=== PATIENT | male | born 1955 | race Caucasian/White ===

== ENCOUNTER 2018-02-13 10:12 | Inpatient (IN) | payer OTHER ==
[2018-02-13] MEDS ORDERED: NS 2,000 ML IV ONE (10:29)
[2018-02-13] MEDS ORDERED: NICOTINE 21 MG/24 HR PATCH TD ONE (10:29)
[2018-02-13] MEDS ORDERED: IPRATROPIUM/ALBUTEROL 3 ML DEYVIAL IH ONE (10:31)
--- NOTE | 2018-02-13 10:31 | EDPHY ---
H & P Time Seen by Provider: 02/13/18 10:15 HPI/ROS: CHIEF COMPLAINT: Cough and fever and shortness of breath HISTORY OF PRESENT ILLNESS: Patient is homeless and tobacco smoker but no hospitalizations in the past year, presents with 3 days of cough fever and shortness of breath. Symptoms severe and went to primary care today was sent here. Worse with exertion, progressive over the last 3 days. Not associated with chest pain, skin rash. REVIEW OF SYSTEMS: Eye: no change in vision ENT: no sore throat Cardiac: no chest pain or syncope Pulmonary: HPI Abdomen: no vomiting, diarrhea, abdominal pain Musculoskeletal: no back pain Skin: no rash Neuro: no headache Constitutional: HPI : no urinary symptoms A comprehensive 10 point review of systems is otherwise negative aside from elements mentioned in the history of present illness. PAST MEDICAL HISTORY: Negative. Specifically negative for diabetes or heart disease or hypertension. Social history: Tobacco smoker, currently in a homeless [facility] General Appearance: Alert and conversant, cooperative. Eyes: No scleral icterus. ENT, Mouth: Normal mucous membranes. Respiratory: Bilateral rhonchi and expiratory wheezes with tachypnea and increased work of breathing. Cardiovascular: Regular rate and rhythm. Gastrointestinal: Abdomen is soft and non tender. Neurological: Alert, face symmetric, normal motor and sensory in extremities. Skin: Warm and dry, no rashes. Musculoskeletal: No peripheral edema. Psychiatric: Not agitated. Emergency Department course/MDM: Patient presents febrile and tachycardic with severely low oxygen saturations although he is in the low to mid 90s on nasal cannula 4 L. Oxygen applied at triage. Sepsis screening with lactate, blood cultures, chest x-ray and respiratory panel. Admission for probable pneumonia; community-acquired antibiotics without recent hospitalization and no history of immunocompromise. 1121: Chest x-ray shows large left-sided pneumonia. Ceftriaxone, azithromycin , full admission. Sepsis IV fluid bolus. Does not have evidence of septic shock. Severe sepsis with lactate 2.9 initially went down to 1.7. Smoking Status: Heavy smoker Constitutional: Initial Vital Signs Temperature (C) 38.0 C 02/13/18 10:17 Heart Rate 132 H 02/13/18 10:17 Respiratory Rate 26 H 02/13/18 10:17 Blood Pressure 168/101 H 02/13/18 10:17 O2 Sat (%) 56 L 02/13/18 10:17 O2 Delivery Mode Nasal Cannula O2 (L/minute) 4 Allergies/Adverse Reactions: No Known Allergies Allergy (Verified 02/13/18 11:17) Home Medications: Medication Instructions Recorded Albuterol [Proventil Inhaler HFA 1 - 2 puffs IH DAILY PRN 02/13/18 (*)] Fluticasone/Salmeter 250/50Mcg 1 puffs IH BID 02/13/18 [Advair 250/50 (*)] Linaclotide [Linzess] 290 mcg PO DAILY 02/13/18 Pramipexole Di-HCl [Pramipexole 0.25 mg PO TID 02/13/18 Dihydrochloride] carBAMazepine [Carbamazepine] 400 mg PO BID 02/13/18 Medical Decision Making - Diagnostics EKG Interpretation: 12-lead EKG interpreted by me; official reading is in computer system. My interpretation is sinus tachycardia rate 110, borderline prolonged QT. Per my interpretation does not have acute ischemic changes. Imaging Results: Imaging Impressions Chest X-Ray 02/13/18 10:29 Impression: Pneumonia versus mass left midlung. Imaging: I viewed and interpreted images myself Differential Diagnosis: Differential diagnosis considered for shortness of breath including but not limited to pulmonary infectious process, COPD, asthma, pulmonary embolus and congestive heart failure. Consult/Admit Bed Type: [place] [id number] Critical Care Time: Critical care time spent by me, Dr. Cody, exclusively with the care of this patient was 35 minutes, exclusive of PA or DRY CELL ASSEMBLY MACHINE TENDER time and exclusive of separate procedures. The organ system at risk was pulmonary infectious and I ordered supplemental oxygen, IV fluids, multiple antibiotics to stabilize the patient and prevent worsening of the patient's condition. - Data Points Laboratory Results: Laboratory Results 02/13/18 11:00 02/13/18 11:00 02/13/18 02/13/18 02/13/18 11:00 11:00 11:00 WBC RBC Hgb Hct MCV MCH MCHC RDW Plt Count MPV Neut % (Auto) Lymph % (Auto) [place] % (Auto) Eos % (Auto) Baso % (Auto) Nucleat RBC Rel Count Absolute Neuts (auto) Absolute Lymphs (auto) Absolute Monos (auto) Absolute Eos (auto) Absolute Basos (auto) Absolute Nucleated RBC Immature Gran % Seg Neutrophils % Band Neutrophils % Lymphocytes % Monocytes % Eosinophils % Basophils % Immature Gran # Absolute Seg Neuts Absolute Band Neuts Absolute Lymphocytes Absolute Monocytes Absolute Eosinophils Absolute Basophils Smudge Cells Toxic Granulation Platelet Estimate Giant Platelets Polychromasia Echinocytes PT 15.5 SEC H SEC (12.0-15.0) INR 1.21 H (0.83-1.16) APTT 37.4 SEC SEC (23.0-38.0) POC Blood Source Patient Temperature POC VBG pH POC VBG pCO2 POC VBG pO2 POC VBG HCO3 POC VBG Total CO2 POC VBG Base Excess VBG Lactic Acid POC Mix VBG O2 Sat Sodium 137 mEq/L mEq/L (135-145) Potassium 4.1 mEq/L mEq/L (3.3-5.0) Chloride 103 mEq/L mEq/L (97-110) Carbon Dioxide 24 mEq/l mEq/l (22-31) Anion Gap 10 mEq/L mEq/L (8-16) BUN 22 mg/dL mg/dL (7-23) Creatinine 0.7 mg/dL mg/dL (0.7-1.3) Estimated GFR > 60 Glucose 124 mg/dL H mg/dL (70-100) POC Lactic Acid Harpal Calcium 9.2 mg/dL mg/dL (8.5-10.4) Total Bilirubin 0.8 mg/dL mg/dL (0.1-1.4) Procalcitonin 2.72 ng/mL H ng/mL (0.02-0.10) 02/13/18 02/13/18 02/13/18 11:00 10:55 10:49 WBC 20.07 10^3/uL H 10^3/uL (3.80-9.50) RBC 4.54 10^6/uL 10^6/uL (4.40-6.38) Hgb 14.5 g/dL g/dL (13.7-17.5) Hct 42.8 % % (40.0-51.0) MCV 94.3 fL fL (81.5-99.8) MCH 31.9 pg pg (27.9-34.1) MCHC 33.9 g/dL g/dL (32.4-36.7) RDW 13.1 % % (11.5-15.2) Plt Count 113 10^3/uL L 10^3/uL (150-400) MPV 9.7 fL fL (8.7-11.7) Neut % (Auto) Not Reported Lymph % (Auto) Not Reported [place] % (Auto) Not Reported Eos % (Auto) Not Reported Baso % (Auto) Not Reported Nucleat RBC Rel Count Not Reported Absolute Neuts (auto) Not Reported Absolute Lymphs (auto) Not Reported Absolute Monos (auto) Not Reported Absolute Eos (auto) Not Reported Absolute Basos (auto) Not Reported Absolute Nucleated RBC Not Reported Immature Gran % Not Reported Seg Neutrophils % 74.8 % % Band Neutrophils % 21.2 % % Lymphocytes % 2.0 % % Monocytes % 2.0 % % Eosinophils % 0.0 % % Basophils % 0.0 % % Immature Gran # Not Reported Absolute Seg Neuts 15.00 10^/uL H 10^/uL (1.70-6.50) Absolute Band Neuts 4.26 10^3/uL H 10^3/uL (0.00-0.70) Absolute Lymphocytes 0.41 10^3/uL L 10^3/uL (1.00-3.00) Absolute Monocytes 0.41 10^3/uL 10^3/uL (0.30-0.80) Absolute Eosinophils 0.00 10^3/uL L 10^3/uL (0.03-0.40) Absolute Basophils 0.00 10^3/uL L 10^3/uL (0.02-0.10) Smudge Cells 1+ H Toxic Granulation PRESENT H Platelet Estimate DECREASED L (ADEQ) Giant Platelets PRESENT H Polychromasia 1+ H Echinocytes 1+ H PT INR APTT POC Blood Source VENOUS Patient Temperature 38.0 DEGREES DEGREES POC VBG pH 7.30 L (7.31-7.42) POC VBG pCO2 56 mmHg H mmHg (40-44) POC VBG pO2 TNP POC VBG HCO3 28 mEq/L H mEq/L (22-26) POC VBG Total CO2 29 mEq/L H mEq/L (21-27) POC VBG Base Excess 1.0 mEq/L mEq/L (-2.5-2.5) VBG Lactic Acid 1.7 mmol/L mmol/L (0.7-2.1) POC Mix VBG O2 Sat TNP Sodium Potassium Chloride Carbon Dioxide Anion Gap BUN Creatinine Estimated GFR Glucose POC Lactic Acid Harpal 2.9 mmol/L H mmol/L (0.7-2.1) Calcium Total Bilirubin Procalcitonin 02/13/18 10:45 WBC RBC Hgb Hct MCV MCH MCHC RDW Plt Count MPV Neut % (Auto) Lymph % (Auto) [place] % (Auto) Eos % (Auto) Baso % (Auto) Nucleat RBC Rel Count Absolute Neuts (auto) Absolute Lymphs (auto) Absolute Monos (auto) Absolute Eos (auto) Absolute Basos (auto) Absolute Nucleated RBC Immature Gran % Seg Neutrophils % Band Neutrophils % Lymphocytes % Monocytes % Eosinophils % Basophils % Immature Gran # Absolute Seg Neuts Absolute Band Neuts Absolute Lymphocytes Absolute Monocytes Absolute Eosinophils Absolute Basophils Smudge Cells Toxic Granulation Platelet Estimate Giant Platelets Polychromasia Echinocytes PT INR APTT POC Blood Source Patient Temperature POC VBG pH POC VBG pCO2 POC VBG pO2 POC VBG HCO3 POC VBG Total CO2 POC VBG Base Excess VBG Lactic Acid 2.9 mmol/L H mmol/L (0.7-2.1) POC Mix VBG O2 Sat Sodium Potassium Chloride Carbon Dioxide Anion Gap BUN Creatinine Estimated GFR Glucose POC Lactic Acid Harpal Calcium Total Bilirubin Procalcitonin Microbiology Results: MICROBIOLOGY 02/13/18 11:00 Nasal, Sinus - Swab Respiratory Panel (PCR) - Final Human Rhinovirus/Enterovirus Medications Given: Discontinued Medications Albuterol/Ipratropium (Duoneb) 3 ml IH EDNOW ONE Stop: 02/13/18 10:32 Last Admin: 02/13/18 10:48 Dose: 3 ml Sodium Chloride (Ns) 2,000 mls @ 4,000 mls/hr 30 ml/kg infuse over 30 min ( 2000 ml) IV EDNOW ONE PRN Reason: Protocol Stop: 02/13/18 10:58 Last Admin: 02/13/18 10:39 Dose: 2,000 mls Azithromycin 500 mg/ Dextrose 255 mls @ 255 mls/hr IV EDNOW ONE PRN Reason: Protocol Stop: 02/13/18 12:20 Last Admin: 02/13/18 11:54 Dose: 255 mls Ceftriaxone Sodium/Dextrose (Rocephin 1 Gm (Premix)) 50 mls @ 100 mls/hr IV EDNOW ONE PRN Reason: Protocol Stop: 02/13/18 11:50 Last Admin: 02/13/18 11:34 Dose: 50 mls Nicotine (Nicoderm Cq) 21 mg TD EDNOW ONE Stop: 02/13/18 10:30 Last Admin: 02/13/18 10:37 Dose: 21 mg Point of Care Test Results: Blood Gas/Lactic Acid-Arterial 02/13/18 10:49 POC Blood Source VENOUS Blood Gas/Lactic Acid-Venous 02/13/18 10:49 POC VBG pH 7.30 L (7.31-7.42) POC VBG pCO2 56 mmHg H mmHg (40-44) POC VBG pO2 TNP POC VBG HCO3 28 mEq/L H mEq/L (22-26) POC VBG Total CO2 29 mEq/L H mEq/L (21-27) POC VBG Base Excess 1.0 mEq/L mEq/L (-2.5-2.5) POC Mix VBG O2 Sat TNP POC Lactic Acid Harpal 2.9 mmol/L H mmol/L (0.7-2.1) Departure - Departure Disposition: [facility] Inpatient Acute Clinical Impression: Pneumonia Qualifiers: Pneumonia type: due to unspecified organism Laterality: left Lung location: unspecified part of lung Qualified Code(s): J18.9 - Pneumonia, unspecified organism Condition: Serious
[2018-02-13] MEDS ORDERED: AZITHROMYCIN IV 500 MG in D5W 250 ML IV ONE (11:21)
--- NOTE | 2018-02-13 11:23 | CPEKG ---
Test Reason : OPEN Blood Pressure : / mmHG Vent. Rate : 111 BPM Atrial Rate : 112 BPM P-R Int : 159 ms QRS Dur : 113 ms QT Int : 357 ms P-R-T Axes : 066 033 022 degrees QTc Int : [address] elevation, consider anterior injury Borderline prolonged QT interval Confirmed by Orion Cody ([id number]) on 02/13/2018 11:22:54 AM Referred By: Confirmed By:Orion Cody
[2018-02-13 11:24] LABS: INR 1.21 (0.83-1.16); PROTIME(PATIENT) 15.5 SEC (12.0-15.0)
[2018-02-13 12:04] LABS: PLATELET COUNT 113 10^3/uL (150-400)
[2018-02-13] MEDS ORDERED: ONDANSETRON 4 MG/2 ML VIAL IVP PRN (12:42)
[2018-02-13] MEDS ORDERED: ONDANSETRON DISINTEGRATING 4 MG TAB PO PRN (12:42)
--- NOTE | 2018-02-13 13:06 | PDGENHP ---
History and Physical - Chief Complaint shortness of breath - History of Present Illness 63yo M with history of Parkinson's syndrome, extensive smoking history likely with COPD, homelessness presents with 3 days of shortness of breath associated with non-productive cough, subjective fevers, chills. Came in today because having trouble breathing with any exertion. Also reports some constipation and one episode of non-bloody emesis. Denies rash, joint pains. No leg swelling, orthopnea, or chest pain. Has been living in homeless long-term for last month and reports numerous sick contacts there. Smokes up to 2 packs of cigarettes daily. No recent travel, animal contacts, antibiotics or hospitalizations/ healthcare contacts. He thinks he was bitten by a tick about a month ago on his leg but never got a rash. In ED, found to be tachycardic with very poor oxygen saturation of 56% on room air that improved to >90% on 4L NC. An initial lactate was 2.9, WBC 20k, and a chest x-ray showed a left sided infiltrate. He was given 2L NS, ceftriaxone, and azithromycin. Case discussed with ED physician Dr Orion Cody. No prior records for review in our system. History Information - Allergies/Home Medication List Allergies/Adverse Reactions: No Known Allergies Allergy (Verified 02/13/18 11:17) Home Medications: Albuterol [Proventil Inhaler HFA (*)] 1 - 2 puffs IH DAILY PRN 02/13/18 [Last Taken Unknown] Fluticasone/Salmeter 250/50Mcg [Advair 250/50 (*)] 1 puffs IH BID 02/13/18 [ Last Taken Unknown] Linaclotide [Linzess] 290 mcg PO DAILY 02/13/18 [Last Taken Unknown] Pramipexole Di-HCl [Pramipexole Dihydrochloride] 0.25 mg PO TID 02/13/18 [Last Taken Unknown] carBAMazepine [Carbamazepine] 400 mg PO BID 02/13/18 [Last Taken Unknown] I have personally reviewed and updated: family history, medical history, social history, surgical history - Past Medical History Additional medical history: Parkinson's syndrome (sees Dr Theodore Dial of [facility]), COPD/emphysema - Surgical History Additional surgical history: none - Family History Additional family history: father - ? PE, coronary disease - Social History Smoking Status: Heavy smoker (2ppd) Alcohol Use: None Drug Use: None Additional social history: living in homeless long-term Review of Systems Review of Systems: ROS: 10pt was reviewed & negative except for what was stated in HPI & below Physical Exam Physical Exam: Temp Pulse Resp BP Pulse Ox 38.0 C 106 H 17 112/67 90 L 02/13/18 10:17 02/13/18 12:20 02/13/18 12:20 02/13/18 12:20 02/13/18 12:25 O2 (L/minute) 5 Constitutional: not in pain, other (disheveled) Eyes: PERRL, anicteric sclera, EOMI Ears, Nose, Mouth, Throat: moist mucous membranes, hearing normal, ears appear normal, no oral mucosal ulcers Cardiovascular: no murmur, rub, or gallop, pulses symmetric bilaterally, tachycardia, edema (trace at bilateral ankles), No JVD Respiratory: reduced air movement, aegophony (left sided), rhonchi (left sided) , other (coughing throughout exam making auscultation difficult; mildly tachypneic) Gastrointestinal: normoactive bowel sounds, soft, non-tender abdomen, no palpable masses Genitourinary: no bladder fullness, no bladder tenderness Skin: warm, normal color, no rashes or abrasions, no fluctuance, no induration, No mottled Musculoskeletal: full muscle strength, no muscle tenderness, normal joint ROM, no joint effusions Neurologic: AAOx3, sensation intact bilaterally, CN II-XII Intact, other (no tremor or rigidity), No weakness, No facial droop Psychiatric: interacting appropriately, not anxious, not encephalopathic, thought process linear Lab Data & Imaging Review 02/13/18 11:00 02/13/18 11:00 WBC 20.07 10^3/uL (3.80-9.50) H 02/13/18 11:00 RBC 4.54 10^6/uL (4.40-6.38) 02/13/18 11:00 Hgb 14.5 g/dL (13.7-17.5) 02/13/18 11:00 Hct 42.8 % (40.0-51.0) 02/13/18 11:00 MCV 94.3 fL (81.5-99.8) 02/13/18 11:00 MCH 31.9 pg (27.9-34.1) 02/13/18 11:00 MCHC 33.9 g/dL (32.4-36.7) 02/13/18 11:00 RDW 13.1 % (11.5-15.2) 02/13/18 11:00 Plt Count 113 10^3/uL (150-400) L 02/13/18 11:00 MPV 9.7 fL (8.7-11.7) 02/13/18 11:00 Neut % (Auto) Not Reported 02/13/18 11:00 Lymph % (Auto) Not Reported 02/13/18 11:00 [place] % (Auto) Not Reported 02/13/18 11:00 Eos % (Auto) Not Reported 02/13/18 11:00 Baso % (Auto) Not Reported 02/13/18 11:00 Nucleat RBC Rel Count Not Reported 02/13/18 11:00 Absolute Neuts (auto) Not Reported 02/13/18 11:00 Absolute Lymphs (auto) Not Reported 02/13/18 11:00 Absolute Monos (auto) Not Reported 02/13/18 11:00 Absolute Eos (auto) Not Reported 02/13/18 11:00 Absolute Basos (auto) Not Reported 02/13/18 11:00 Absolute Nucleated RBC Not Reported 02/13/18 11:00 Immature Gran % Not Reported 02/13/18 11:00 Seg Neutrophils % 74.8 % 02/13/18 11:00 Band Neutrophils % 21.2 % 02/13/18 11:00 Lymphocytes % 2.0 % 02/13/18 11:00 Monocytes % 2.0 % 02/13/18 11:00 Eosinophils % 0.0 % 02/13/18 11:00 Basophils % 0.0 % 02/13/18 11:00 Immature Gran # Not Reported 02/13/18 11:00 Absolute Seg Neuts 15.00 10^/uL (1.70-6.50) H 02/13/18 11:00 Absolute Band Neuts 4.26 10^3/uL (0.00-0.70) H 02/13/18 11:00 Absolute Lymphocytes 0.41 10^3/uL (1.00-3.00) L 02/13/18 11:00 Absolute Monocytes 0.41 10^3/uL (0.30-0.80) 02/13/18 11:00 Absolute Eosinophils 0.00 10^3/uL (0.03-0.40) L 02/13/18 11:00 Absolute Basophils 0.00 10^3/uL (0.02-0.10) L 02/13/18 11:00 Smudge Cells 1+ H 02/13/18 11:00 Toxic Granulation PRESENT H 02/13/18 11:00 Platelet Estimate DECREASED (ADEQ) L 02/13/18 11:00 Giant Platelets PRESENT H 02/13/18 11:00 Polychromasia 1+ H 02/13/18 11:00 Echinocytes 1+ H 02/13/18 11:00 PT 15.5 SEC (12.0-15.0) H 02/13/18 11:00 INR 1.21 (0.83-1.16) H 02/13/18 11:00 APTT 37.4 SEC (23.0-38.0) 02/13/18 11:00 POC Blood Source VENOUS 02/13/18 10:49 Patient Temperature 38.0 DEGREES 02/13/18 10:49 POC VBG pH 7.30 (7.31-7.42) L 02/13/18 10:49 POC VBG pCO2 56 mmHg (40-44) H 02/13/18 10:49 POC VBG pO2 TNP 02/13/18 10:49 POC VBG HCO3 28 mEq/L (22-26) H 02/13/18 10:49 POC VBG Total CO2 29 mEq/L (21-27) H 02/13/18 10:49 POC VBG Base Excess 1.0 mEq/L (-2.5-2.5) 02/13/18 10:49 VBG Lactic Acid 1.7 mmol/L (0.7-2.1) 02/13/18 10:55 POC Mix VBG O2 Sat TNP 02/13/18 10:49 Sodium 137 mEq/L (135-145) 02/13/18 11:00 Potassium 4.1 mEq/L (3.3-5.0) 02/13/18 11:00 Chloride 103 mEq/L (97-110) 02/13/18 11:00 Carbon Dioxide 24 mEq/l (22-31) 02/13/18 11:00 Anion Gap 10 mEq/L (8-16) 02/13/18 11:00 BUN 22 mg/dL (7-23) 02/13/18 11:00 Creatinine 0.7 mg/dL (0.7-1.3) 02/13/18 11:00 Estimated GFR > 60 02/13/18 11:00 Glucose 124 mg/dL (70-100) H 02/13/18 11:00 POC Lactic Acid Harpal 2.9 mmol/L (0.7-2.1) H 02/13/18 10:49 Calcium 9.2 mg/dL (8.5-10.4) 02/13/18 11:00 Total Bilirubin 0.8 mg/dL (0.1-1.4) 02/13/18 11:00 Visualized and Interpreted Chest x-ray results: Yes Chest X-Ray results: infiltrate (large left sided infiltrate involving lingula and likely lower lobe, small left pleural effusion, enlarged hilar areas likely suggesting pulmonary hypertension (interpreted by me)) Visualized and Interpreted EKG results: Yes EKG additional interpertation: Sinus tachycardia, prolonged QTc (485), no acute ischemia Assessment & Plan Assessment: 63yo M with history of Parkinson's syndrome, extensive smoking history likely with COPD, homelessness presents with 3 days of shortness of breath found to be hypoxemic with left sided infiltrate on chest x-ray and meeting sepsis criteria. Plan: #Acute hypoxemic respiratory failure with left sided infiltrate: Resp viral panel + for rhinovirus/enterovirus however x-ray more convincing for bacterial process. Will treat for community-acquired pneumonia. - Supplemental O2 to maintain sats >88% - CTX, azithromycin - Legionella, Strep pneumo urine ags - Check procalcitonin to help guide duration of abx - Sputum culture - If not improving in expected fashion, will pursue contrasted chest CT to better characterize and broaden antibiotics. He likely warrants a chest CT once acute issues resolve to evaluate for mass leading to post-obstructive pneumonia. #Sepsis: Febrile with tachycardia and leukocytosis on arrival in setting of pneumonia. - IVF, abx as above - Follow blood cultures and monitor sepsis parameters #Lactic acidosis: Resolved with IVF. #COPD: Based on extensive smoking history, no formal PFTs. Not wheezing on exam , doesn't appear acutely exacerbated. - Schedule dusofiya, hold on starting steroids #Parkinson's syndrome: Followed by Dr Theodore Dial of [facility] - Continue home pramipexole, carbamazepine (? seizure hx) #Tobacco use: Nicotine patch. #Homelessness: Involve case management. May need supplemental oxygen at discharge. Diet: regular VTE ppx: high risk, LMWH Code: full Dispo: Admit as inpatient to step down unit given his tenuous respiratory status. Anticipate >2 midnights to manage above conditions.
[2018-02-13] MEDS ORDERED: NS 1,000 ML IV ONE (15:16)
--- NOTE | 2018-02-13 15:28 | ASMTCMCOM ---
CM Note CM Note Notes: 63yr old male admitted for SOB, Hypoxemic Respiratory Failure, Sepsis. He has a Hx of Homelessness, Parkinson's, extensive smoking, COPD. Being tx with IV ABX. May have O2 needs on discharge. CM to follow. Date Signed: 02/13/2018 03:27 PM Electronically Signed By:Estrella Patterson LCSW
[2018-02-13] MEDS: NS 1,000 ML IV SCH (16:21)
[2018-02-13] MEDS: PRAMIPEXOLE 0.25 MG TAB PO SCH ×2 (16:24→20:34)
--- NOTE | 2018-02-13 16:44 | PDMN ---
Medical Necessity Medical necessity: Pt meets IP criteria per MD & MCG [id number]; est los >2 mn for eval/tx of pneumonia w/sepsis, acute hypoxemic respiratory failure (56% on RA), tachycardia, leukocytosis & thrombocytopenia; admit to SDU for further workup/ close monitoring, IV abx, IVFs & respiratory supportive care; hx Parkinsons, homelessness, COPD & emphysema; per H&P & order 02/13/18
[2018-02-13] MEDS: IPRATROPIUM/ALBUTEROL 3 ML DEYVIAL IH SCH ×2 (17:13→23:00)
--- NOTE | 2018-02-13 17:15 | GCON ---
PULMONARY/CRITICAL CARE CONSULTATION DATE OF CONSULTATION: 02/13/2018 REFERRING PHYSICIAN: Isaiah Lilly MD REASON FOR REFERRAL: Evaluation and management of pneumonia. HISTORY: The patient is a 63-year-old male with a history of Parkinson's and active smoking who is c urrently homeless. He came into the hospital today because he was having increased dyspnea. He also had a nonproductive cough and some fevers and chills. In the emergency department, he was found to be tachycardic and severely hypoxemic. Chest x-ray showed a left-sided infiltrate. He was started o n fluids and antibiotics and was admitted to the hospital. He states that he already feels better, f eeling more hydrated. His strength has improved a bit and his appetite is good. PAST MEDICAL HISTORY: 1. Parkinson disease. 2. Probable COPD. ADMISSION MEDICATIONS: Include Advair, albuterol, Linzess, pramipexole, and carbamazepine. ALLERGIES: None. SOCIAL HISTORY: The patient is currently homeless. He has about a 2-pack per day history of smoking and continues to smoke currently. He denies alcohol for about the last 6 months. He [address] in a [facility]. FAMILY HISTORY: Unremarkable. REVIEW OF SYSTEMS: A 10-point review of systems adds nothing to the history of present illness. PHYSICAL EXAMINATION: GENERAL: The patient is awake and alert. VITAL SIGNS: Blood pressure is 93/ 53 with a heart rate of 107. Oxygen saturations are 91% on 5 L. He is currently afebrile. His temp erature was 38.0 at admission. HEENT: Normocephalic and atraumatic. No icterus. NECK: No JVD. T rachea is midline. CHEST: He has rales in the left mid and lower lung. CARDIAC: Regular rate and rhythm without murmur. ABDOMEN: Soft, nontender. Bowel sounds are present. EXTREMITIES: No clubb ing, cyanosis, or edema. LABORATORY/IMAGING DATA: White blood count is 20.0 with 21% bands. The hemoglobin is 14.5. Statistical Developer ry group is unremarkable. Lactate is 2.9. Procalcitonin is 2.7. A blood gas shows a pH of 7.30 wit h a CO2 of 56 and a bicarbonate of 28. An INR is 1.2. A chest x-ray shows a left mid lung infiltrat e. Images were reviewed by me. ASSESSMENT: 1. Community-acquired pneumonia. The patient has symptoms of cough and shortness of breath and a ch est x-ray that shows an infiltrate. He also has an elevated white blood count with bandemia and an e levated lactate and procalcitonin. He has clinically responded to intravenous fluids and ceftriaxone /azithromycin. His oxygen needs are moderate, but are stable over the last several hours. He is not having any respiratory distress. 2. Chronic obstructive pulmonary disease. The patient is on Advair and albuterol as needed. He has an elevated carbon dioxide, but it is unclear if all this elevation is due to chronic carbon dioxide retention or whether his acute process could be contributing as well. His elevated carbon dioxide i s chronic. His chronic obstructive pulmonary disease is likely quite severe. The patient does not cu rrently have wheezing or significant respiratory distress. 3. Sepsis. The patient meets criteria for sepsis due to pneumonia. RECOMMENDATIONS: Continue empiric antibiotics. Fluids per sepsis protocol. Nicotine patch will be placed. The patient may need supplemental oxygen at discharge. /[id number]/MODL
[2018-02-13] MEDS: carBAMazepine 200 MG TAB PO SCH (20:34)
[2018-02-14] MEDS: NS 1,000 ML IV SCH ×2 (01:47→15:59)
[2018-02-14] MEDS: IPRATROPIUM/ALBUTEROL 3 ML DEYVIAL IH SCH ×4 (06:17→22:02)
[2018-02-14 06:30] LABS: PLATELET COUNT 97 10^3/uL (150-400)
[2018-02-14] MEDS: NICOTINE 21 MG/24 HR PATCH TD SCH (08:18)
[2018-02-14] MEDS: PRAMIPEXOLE 0.25 MG TAB PO SCH ×3 (08:18→21:15)
[2018-02-14] MEDS: carBAMazepine 200 MG TAB PO SCH ×2 (08:19→21:15)
[2018-02-14] MEDS: AZITHROMYCIN IV 500 MG in NS 250 ML IV SCH (08:51)
[2018-02-14] MEDS: ENOXAPARIN 40 MG/0.4 ML SYR SC SCH (10:16)
--- NOTE | 2018-02-14 12:31 | HOSPPROG ---
Hospitalist Progress Note Assessment/Plan: 63yo M with history of Parkinson's, extensive smoking history likely with COPD, homelessness presents with 3 days of shortness of breath found to be hypoxemic with left sided infiltrate on chest x-ray and meeting sepsis criteria. #Acute hypoxemic respiratory failure 2/2 CAP: Much improved. + for rhinovirus but infiltrate on x-ray, elevated procalcitonin, sputum cx with GPCs make bacterial etiology likely. - Supplemental O2 to maintain sats >88% - Continue CTX, azithromycin - Legionella, Strep pneumo urine ags, f/u sputum cx #Sepsis: Physiology resolved with IVF. Follow blood cultures. #Lactic acidosis: Resolved with IVF. #COPD: Based on extensive smoking history, no formal PFTs. Not wheezing on exam , doesn't appear acutely exacerbated. - Schedule duonebs, no steroids #Parkinson's: Followed by Dr Theodore Dial of [facility] - Continue home pramipexole #Bipolar d/o: Stable - Continue carbamazepine #Tobacco use: Nicotine patch. #Homelessness: Involve case management. Will likely need supplemental oxygen at discharge. Diet: regular VTE ppx: high risk, LMWH Code: full Dispo: Continue inpatient admission. Transfer to med/surg floor for ongoing management of above. Subjective: Doing much better. Breathing significantly improved since admission. No fevers. Thought the fish was unevenly cooked. Objective: Vital Signs Temp Pulse Resp BP Pulse Ox 36.7 C 92 20 94/56 L 96 02/14/18 07:51 02/14/18 11:10 02/14/18 11:10 02/14/18 11:10 02/14/18 11:10 Microbiology 02/13/18 18:00 - Final Sputum, Expectorated Laboratory Results 02/14/18 05:25 02/14/18 05:25 02/13/18 02/14/18 02/15/18 05:59 05:59 05:59 Intake Total 5405 350 Output Total 1100 Balance 4305 350 PT 15.5 SEC (12.0-15.0) H 02/13/18 11:00 INR 1.21 (0.83-1.16) H 02/13/18 11:00 - Physical Exam Constitutional: no apparent distress, appears nourished, not in pain Eyes: PERRL, anicteric sclera, EOMI Cardiovascular: regular rate and rhythym, no murmur, rub, or gallop Respiratory: no respiratory distress, reduced air movement (but improved since admission), rhonchi (L>R), other (no wheezing) Gastrointestinal: normoactive bowel sounds, soft, non-tender abdomen, no palpable masses Skin: no rashes or abrasions, no fluctuance, no induration Neurologic: AAOx3 Psychiatric: not encephalopathic ICD10 Worksheet Patient Problems: Problems Problem Status Onset Pneumonia Acute
[2018-02-15] MEDS: IPRATROPIUM/ALBUTEROL 3 ML DEYVIAL IH SCH ×3 (05:44→16:31)
[2018-02-15] MEDS: ACETAMINOPHEN 325 MG TAB PO PRN ×2 (07:54→19:50)
[2018-02-15] MEDS: PRAMIPEXOLE 0.25 MG TAB PO SCH ×3 (08:00→19:50)
[2018-02-15] MEDS: carBAMazepine 200 MG TAB PO SCH ×2 (08:00→19:50)
[2018-02-15] MEDS: NICOTINE 21 MG/24 HR PATCH TD SCH (08:00)
[2018-02-15] MEDS: ENOXAPARIN 40 MG/0.4 ML SYR SC SCH (08:01)
[2018-02-15] MEDS: AZITHROMYCIN IV 500 MG in NS 250 ML IV SCH (08:29)
--- NOTE | 2018-02-15 09:43 | HOSPPROG ---
Hospitalist Progress Note Assessment/Plan: 63yo M with history of Parkinson's, extensive smoking history likely with COPD, homelessness presents with 3 days of shortness of breath found to be hypoxemic with left sided infiltrate on chest x-ray and meeting sepsis criteria. #Acute hypoxemic respiratory failure 2/2 CAP: Slowly improving, now on 2-4L. + for rhinovirus but infiltrate on x-ray, elevated procalcitonin make bacterial etiology likely. Sputum cx with oral lidia. - Discontinue azithromycin as x-ray not consistent with atypical infection - Continue CTX - Assess O2 needs at rest and with exertion - Legionella, Strep pneumo urine ags pending #Rash: Macular. Across abdomen. No oral lesions. Drug rxn vs viral eruption. - Monitor, may need to switch off cephalosporin if worsens #Cough - Guaifenesin PRN #COPD: Based on extensive smoking history, no formal PFTs. Not wheezing on exam , doesn't appear acutely exacerbated. - Space out schedule duonebs q6->q8, no steroids #Sepsis: Physiology resolved with IVF. Follow blood cultures. #Lactic acidosis: Resolved with IVF. #Parkinson's: Followed by Dr Theodore Dial of [facility]. Continue home pramipexole #Bipolar d/o: Stable. Continue carbamazepine #Tobacco use: Nicotine patch. #Homelessness: Patient had been living in homeless longterm however his daughter has agreed to take him in for at least a week after discharge. Will likely need supplemental oxygen when leaves hospital. Diet: regular VTE ppx: high risk, LMWH Code: full Dispo: Continue inpatient admission as unsafe to discharge just yet due to respiratory status and requiring scheduled nebulizer treatments. Stable for med- surg floor and order has been placed. Subjective: Continues to feel better. Has cough this morning. Otherwise feeling well with no new symptoms. RN noted rash on abdomen. He denies this being itchy. Objective: Vital Signs Temp Pulse Resp BP Pulse Ox 36.7 C 93 20 130/66 H 92 02/15/18 07:13 02/15/18 07:13 02/15/18 07:13 02/15/18 07:13 02/15/18 07:13 Microbiology 02/13/18 18:00 - Final Sputum, Expectorated Laboratory Results 02/15/18 04:29 02/15/18 04:29 02/14/18 02/15/1802/16/18 05:59 05:59 05:59 Intake Total 5405 4298 305 Output Total 1100 700 250 Balance 4305 2185 55 PT 15.5 SEC (12.0-15.0) H 02/13/18 11:00 INR 1.21 (0.83-1.16) H 02/13/18 11:00 - Physical Exam Constitutional: no apparent distress, appears nourished, not in pain, other ( disheveled) Eyes: PERRL, anicteric sclera, EOMI Ears, Nose, Mouth, Throat: moist mucous membranes, hearing normal, ears appear normal, no oral mucosal ulcers Cardiovascular: regular rate and rhythym, no murmur, rub, or gallop Respiratory: no respiratory distress, reduced air movement, rhonchi (diffuse (L> R)), other (no wheezing) Gastrointestinal: normoactive bowel sounds, soft, non-tender abdomen, no palpable masses Skin: other (faint macular erythematous rash over abdomen) Neurologic: AAOx3, sensation intact bilaterally Psychiatric: interacting appropriately, not anxious, not encephalopathic, thought process linear ICD10 Worksheet Patient Problems: Problems Problem Status Onset Pneumonia Acute
[2018-02-15] MEDS: guaiFENesin 600 MG TAB.ER PO PRN ×2 (10:29→19:50)
--- NOTE | 2018-02-15 18:35 | ASMTCMCOM ---
CM Note CM Note Notes: Dr. Lilly thinks patient is likely to need supplemental oxygen at discharge. Patient is homeless and unless their is a respite program available for patient to stay at, supplemental oxygen will not be possible. CM to explore medical respite bed to see if anything is available. CM will follow. Date Signed: 02/15/2018 12:45 PM Electronically Signed By:Cynthia Schmidt LCSW
[2018-02-16] MEDS: IPRATROPIUM/ALBUTEROL 3 ML DEYVIAL IH SCH ×4 (01:33→16:32)
[2018-02-16] MEDS: CEPACOL LOZENGE PO PRN ×4 (01:49→07:53)
[2018-02-16] MEDS: guaiFENesin 600 MG TAB.ER PO PRN (05:49)
[2018-02-16] MEDS: carBAMazepine 200 MG TAB PO SCH (07:52)
[2018-02-16] MEDS: ACETAMINOPHEN 325 MG TAB PO PRN (07:52)
[2018-02-16] MEDS: ENOXAPARIN 40 MG/0.4 ML SYR SC SCH (07:53)
[2018-02-16] MEDS: NICOTINE 21 MG/24 HR PATCH TD SCH (07:53)
[2018-02-16] MEDS: PRAMIPEXOLE 0.25 MG TAB PO SCH ×2 (07:53→17:19)
[2018-02-16 08:03] VITALS: BP 178/86
--- NOTE | 2018-02-16 10:52 | PDHOMEO2F ---
Home Oxygen Face to Face Home Orders: I certify that a physician or a nurse practitioner or physician's registered nurse first assistant has had a apyl-ul-vida encounter with this patient on the date of this order due to the diagnosis listed, which relates to the primary reason the patient requires home oxygen. Alternative treatments have been tried, or considered, and deemed ineffective. It is anticipated that supplemental oxygen will result in improvement with treatment. Home oxygen qualifying diagnosis: acute hypoxemic respiratory failure due to pneumonia SpO2 on room air (%): 86 Frequency of home oxygen needed: continuous Home oxygen liters per minute: 2 Home oxygen delivery device: nasal cannula Concentrator: Yes E-tanks for mobility and back up: Yes If ordering portable O2, is the patient mobile in the home?: Yes I certify that, based on these findings, the home oxygen is medically necessary for this patient for the following length of time. Length of time home oxygen needed: 3 months
--- NOTE | 2018-02-16 11:40 | PDHOMEO2F ---
Home Oxygen Face to Face Home Orders: I certify that a physician or a nurse practitioner or physician's press assistant and feeder has had a bxni-uu-adyz encounter with this patient on the date of this order due to the diagnosis listed, which relates to the primary reason the patient requires home oxygen. Alternative treatments have been tried, or considered, and deemed ineffective. It is anticipated that supplemental oxygen will result in improvement with treatment. Home oxygen qualifying diagnosis: COPD Home oxygen secondary diagnosis: pneumonia SpO2 on room air (%): 86 Frequency of home oxygen needed: continuous Home oxygen liters per minute: 2 Home oxygen delivery device: nasal cannula Concentrator: Yes E-tanks for mobility and back up: Yes If ordering portable O2, is the patient mobile in the home?: Yes I certify that, based on these findings, the home oxygen is medically necessary for this patient for the following length of time. Length of time home oxygen needed: 99 years
--- NOTE | 2018-02-16 15:16 | ASMTCMCOM ---
CM Note CM Note Notes: Spoke with patient and he states his daughter, Carole is willing to let him stay at her apartment for the next month. Contacted Carole, ([phone]) and she confirmed she would be willing to take her dad at discharge. Carole does want to know he will have the oxygen he needs going home. Informed her respiratory was ordering his supples and he will have them with him. Carole's address [id number] [place] [address]. [address], [place], [place] [address]. Patient's daughter does not drive and so she cannot pick him up. We will make transport arrangements for patient. Patient will need his medications filled here before he goes.CM will follow. Date Signed: 02/16/2018 03:00 PM Electronically Signed By:Cynthia Schmidt LCSW
--- NOTE | 2018-02-16 15:26 | ASDISCHSUM ---
Discharge Information Plan Status:Home with DME or Oxygen Medically Cleared to Leave:02/16/2018 Discharge Date:02/16/2018 CM D/C Disposition:Home, Routine, Self-Care ADT D/C Disposition:Home, Routine, Self-Care Projected Discharge Date:02/16/2018 12:00 AM Transportation at D/C:Cab Voucher Discharge Delay Reason: Follow-Up Date:02/16/2018 12:00 AM Discharge Slot:2 - 12:01 pm - 18:00 pm Final Diagnosis:SOB, Hypoxemic Respiratory Failure, Sepsis Placement Information Patient Contact Information Contact Name:ASHLEY Relationship:Daughter Address: Work Phone: City: [facility] Phone: [facility] Code: Email: Financial Information Financial Class:Medicare Primary Plan Desc:MEDICARE INPATIENT Primary Plan Number:[id number] Secondary Plan Desc: Secondary Plan Number: Assessment Information [facility] Progress Note CM Note CM Note Notes: 63yr old male admitted for SOB, Hypoxemic Respiratory Failure, Sepsis. He has a Hx of Homelessness, Parkinson's, extensive smoking, COPD. Being tx with IV ABX. May have O2 needs on discharge. CM to follow. Date Signed: 02/13/2018 03:27 PM Electronically Signed By:Estrella Patterson LCSW [facility] CM Progress Note CM Note [facility] Note Notes: Dr. Lilly thinks patient is likely to need supplemental oxygen at discharge. Patient is homeless and unless their is a respite program available for patient to stay at, supplemental oxygen will not be possible. CM to explore medical respite bed to see if anything is available. CM will follow. Date Signed: 02/15/2018 12:45 PM Electronically Signed By:Cynthia Schmidt LCSW [facility] Progress Note CM Note CM Note Notes: Spoke with patient and he states his daughter, Carole is willing to let him stay at her apartment for the next month. Contacted Carole, ([phone]) and she confirmed she would be willing to take her dad at discharge. Carole does want to know he will have the oxygen he needs going home. Informed her respiratory was ordering his supples and he will have them with him. Carole's address [id number] [place] [address]. [address], [place], [place] [address]. Patient's daughter does not drive and so she cannot pick him up. We will make transport arrangements for patient. Patient will need his medications filled here before he goes.CM will follow. Date Signed: 02/16/2018 03:00 PM Electronically Signed By:Cynthia Schmidt LCSW Case Management Discharge Plan Note Case Management Discharge Discharge Order Complete? Answers: Yes Patient to Obtain Answers: via MAP Medications Transportation Arranged Answers: Taxi - Voucher Family Notified Answers: Yes Notes: DaughterCarole Discharge Comments Notes: Patient is d'cing today to his daughter's apartment in [place], [place]. Carole has agreed to take him in for the next month and provided her address so we can get the oxygen required set up for patient. Patient was assisted with getting his prescriptions filled here in the hospital. Transport arranged due to Carole saying she does not drive and cannot come after him. No further needs. Date Signed: 02/16/2018 03:09 PM Electronically Signed By:Cynthia Schmidt LCSW Intervention Information
--- NOTE | 2018-02-16 15:27 | PDDCSUM ---
Discharge Summary Discharge Summary: Date of Admission: 02/13/2018 Date of Discharge: 02/16/2018 Disposition: discharge to daughter's home with supplemental oxygen Discharge Diagnoses: 1. Acute hypoxemic respiratory failure due to 2. Streptococcal pneumoniae pneumonia with underlying 3. COPD and 4. Ongoing tobacco use 5. Homelessness recently living in residential 6. Bipolar disorder 7. Parkinson's Brief Hospital Course: 63yo M with history of bipolar, Parkinson's, extensive smoking history likely with COPD, homelessness presents with 3 days of shortness of breath found to be hypoxemic with left sided infiltrate on chest x-ray and meeting sepsis criteria. Strep pneumo urine antigen returned positive. Discharged to complete 7 days of cefdinir. Initially requiring up to 6L NC and discharged on 2L NC continuously. Encouraged to quit smoking. His chronic medications were continued. Medications: Please refer to EMR. Changes this hospitalization include addition of Follow Up Plan: 1. PCP clinic visit within 1-2 weeks to assess breathing and need for supplemental oxygen 2. Recommend formal PFTs 3. Tobacco cessation Physical Exam: Vitals reviewed, normotensive with oxygen saturations >90% on 2L NC. Alert and oriented. RRR without murmurs on cardiac exam. Lungs with improved aeration albeit still with bilateral rhonchi. No wheezing. Abdomen soft , nontender. No lower extremity edema or JVD. No clubbing.
== END 2018-02-16 19:01 | disposition home or self-care (01) | DRG 871 ==
LOC: F2N 14:08
PROVIDERS: ADMIT Internal Medicine; ATTEND Internal Medicine
DX: A40.3 Sepsis due to Streptococcus pneumoniae (principal); J13 Pneumonia due to Streptococcus pneumoniae; J96.01 Acute respiratory failure with hypoxia; J44.9 Chronic obstructive pulmonary disease, unspecified; G20 Parkinson's disease; D69.6 Thrombocytopenia, unspecified; F31.9 Bipolar disorder, unspecified; F17.210 Nicotine dependence, cigarettes, uncomplicated; Z59.0 Homelessness
CPT/HCPCS: 83605-PO; 87449-90; 96374; G0008; J0456; J0696; J1650

== ENCOUNTER 2018-04-03 13:27 | Day surgery (SDC) | payer OTHER ==
[2018-04-03] MEDS ORDERED: LR 1,000 ML IV ONE (13:37)
[2018-04-03] MEDS ORDERED: LIDOCAINE 1% 2 ML INJ ID PRN (13:37)
[2018-04-03] MEDS ORDERED: BUPIVACAINE 0.5% 30 ML SDV ONE (14:45)
[2018-04-03] MEDS ORDERED: LIDOCAINE 1% 300 MG/30 ML SDV ONE (14:45)
[2018-04-03] MEDS ORDERED: ceFAZolin 2 GM/DEXTROSE 100 ML IV ONE (15:28)
--- NOTE | 2018-04-03 15:28 | PDHPUP ---
History & Physical Update H&P update statement: This history and physical update is based on an assessment of the patient which was completed after admission or registration (within 24 hours), but prior to the surgery/procedure. H&P update: H&P reviewed & patient examined, no change in patient's condition since H&P completed
--- NOTE | 2018-04-03 15:57 | PDANEPAE ---
ANE Past Medical History - Cardiovascular History Hx Hypertension: No Hx Arrhythmias: No Hx Chest Pain: No Hx Coronary Artery / Peripheral Vascular Disease: No Hx CHF / Valvular Disease: No Hx Palpitations: No - Pulmonary History Hx COPD: Yes Hx Asthma/Reactive Airway Disease: No Hx Recent Upper Respiratory Infection: Yes Hx Oxygen in Use at Home: No Hx Sleep Apnea: No Sleep Apnea Screening Result - Last Documented: Negative Pulmonary History Comment: PNEUMONIA/RESP FAILURE/ RHINOVIRUS 02/13/18 SENT HOME WITH OXYGEN NOW OFF 02/2018 STILL HAS A COUGH RECENT PULSE OX 96 - Neurologic History Hx Cerebrovascular Accident: No Hx Seizures: No Hx Dementia: No Neurologic History Comment: PARKINSON SYNDROME HAND TREMORS - Endocrine History Hx Diabetes: No Hypothyroid: No Hyperthyroid: No Obesity: no Endocrine History Comment: H/O HYPOTHYROIDISM PREV RX NONE FOR ABOUT 1.5 YEARS - Renal History Hx Renal Disorders: No - Liver History Hx Hepatic Disorders: No - Neurological & Psychiatric Hx Hx Neurological and Psychiatric Disorders: Yes Neurological / Psychiatric History Comment: BIPOLAR - Cancer History Hx Cancer: No - Congenital Disorder History Hx Congenital Disorders: No - GI History GERD: no Hx Gastrointestinal Disorders: Yes Gastrointestinal History Comment: CONSTIPATION - Other Health History Other Health History: FULL DENTURES - Chronic Pain History Chronic Pain: Yes (RT GROIN) - Surgical History Prior Surgeries: NONE ANE Review of Systems Review of Systems: - Exercise capacity Exercise capacity: >=4 METS METS (RN): 4 METS ANE Patient History - Allergies Allergies/Adverse Reactions: No Known Allergies Allergy (Verified 02/13/18 11:17) - Home Medications Home Medications: Albuterol [Proventil Inhaler HFA (*)] 1 - 2 puffs IH DAILY PRN 02/13/18 [Last Taken 04/02/18 21:00] Fluticasone/Salmeter 250/50Mcg [Advair 250/50 (*)] 1 puffs IH BID 02/13/18 [ Last Taken 04/03/18 07:00] Linaclotide [Linzess] 290 mcg PO DAILY 02/13/18 [Last Taken 04/03/18 09:00] Pramipexole Di-HCl [Pramipexole Dihydrochloride] 0.25 mg PO TID 02/13/18 [Last Taken 04/02/18 17:00] carBAMazepine [Carbamazepine] 400 mg PO BID 09/10/18 [Last Taken 04/03/18 09:00] Oxycontin 04/03/18 [Last Taken 04/03/18 09:00] - NPO status NPO Since - Liquids (Date): 04/03/18 NPO Since - Liquids (Time): 12:15 NPO Since - Solids (Date): 04/03/18 NPO Since - Solids (Time): 05:00 - Smoking Hx Smoking Status: Heavy smoker Marijuana use: No - Alcohol Use Alcohol Use: Rarely - Family Anes Hx Family Anes Hx: neg - N/A Family Hx Anesthesia Complications: NEG ANE Labs/Vital Signs - Vital Signs Blood Pressure: 117/73 Heart Rate: 64 Respiratory Rate: 17 O2 Sat (%): 94 Height: 182.88 cm Weight: 68.039 kg ANE Physical Exam - Airway Neck exam: FROM Mallampati Score: Class 2 Mouth exam: dentures - Pulmonary Pulmonary: reduced air movement, expiratory wheeze - Cardiovascular Cardiovascular: regular rate and rhythym, no murmur, rub, or gallop - ASA Status ASA Status: III ANE Anesthesia Plan Anesthesia Plan: MAC Total IV Anesthesia: Yes
[2018-04-03] MEDS ORDERED: MIDAZOLAM 2 MG/2 ML VIAL IVP ONE (15:58)
[2018-04-03] MEDS ORDERED: DEXAMETHASONE 4 MG/ML VIAL ONE (16:05)
[2018-04-03] MEDS ORDERED: fentaNYL 100 MCG/2 ML INJ ONE ×2 (16:05→17:44)
[2018-04-03] MEDS ORDERED: PROPOFOL/EMULSION 500 MG/50 ML BOTTLE IV ONE (16:08)
[2018-04-03] MEDS ORDERED: oxyCODONE IR 5 MG TAB PO PRN (16:13)
[2018-04-03] MEDS ORDERED: ALBUTEROL 3 ML DEYVIAL IH PRN (16:13)
[2018-04-03] MEDS ORDERED: fentaNYL 100 MCG/2 ML INJ IVP PRN (16:13)
[2018-04-03] MEDS ORDERED: NALOXONE HCL 0.4 MG/ML INJ IVP PRN (16:13)
[2018-04-03] MEDS ORDERED: PHENYLEPHRINE HCL 100 MCG/ML SYR IVP PRN (16:13)
[2018-04-03] MEDS ORDERED: LR 500 ML IV PRN (16:13)
[2018-04-03] MEDS ORDERED: ONDANSETRON 4 MG/2 ML VIAL IVP PRN (16:13)
[2018-04-03] MEDS ORDERED: ACETAMINOPHEN 500 MG TAB PO PRN (16:13)
[2018-04-03] MEDS ORDERED: HYDROCODONE/APAP 5/325 TAB PO PRN (16:13)
[2018-04-03] MEDS ORDERED: KETOROLAC 30 MG/1 ML SDV ONE (16:49)
--- NOTE | 2018-04-03 17:18 | POSTOPPROG ---
Post Op Note Date of Operation: 04/03/18 Surgeon: Geoffrey Bhat Anesthesiologist: Ermelinda Anesthesia: IV Sedation, Local (Specify) (lidocaine/marcaine) Pre-op Diagnosis: RIH Post-op Diagnosis: same Procedure: Open Constantin type right IH repair with prolene mesh Inf/Abcess present in the surg proc area at time of surgery?: No EBL: Minimal Complications: none Specimen(s): none
--- NOTE | 2018-04-03 17:38 | POSTANESTH ---
Post Anesthetic Evaluation Cardiovascular Status: Normal, Stable Respiratory Status: Normal, Stable Level of Consciousness/Mental Status: Can Participate in Eval Pain Control: Adequate, Prn Tx Ordered Nausea/Vomiting Control: Adequate, Prn Tx Ordered Complications Possibly Related to Anesthesia: None Noted
[2018-04-03] MEDS ORDERED: HYDROCODONE/APAP 5/325 TAB ONE (17:55)
[2018-04-03 18:04] VITALS: BP 117/75
--- NOTE | 2018-04-03 21:12 | GOP ---
DATE OF OPERATION: SURGEON: Geoffrey Bhat MD ANESTHESIA: IV sedation and local anesthesia used. ANESTHESIOLOGIST: Dr. Parks. PREOPERATIVE DIAGNOSIS: Right inguinal hernia, indirect. POSTOPERATIVE DIAGNOSIS: Right inguinal hernia, indirect. PROCEDURE PERFORMED: Open right inguinal hernia repair, Constantin type with Prolene mesh. FINDINGS: SPECIMENS: No specimens. ESTIMATED BLOOD LOSS: Less than 10 mL. INDICATIONS: 63-year-old gentleman presents with right inguinal hernia, symptomatic, especially afte r pneumonia. He has been cleared of his pneumonia and medically optimized. Consent has been obtained for right inguinal hernia repair, open. DESCRIPTION OF PROCEDURE: The patient was brought to the operative room. After induction of IV sedat ion, his groin and lower abdomen were prepped with chlorhexidine and draped sterilely. Time-out proce dure was performed according to the institutional standards. Local anesthetic 1% xylocaine, 0.5% Melo leslie were infused in the skin and subcutaneous tissues, as well as a field block. Skin incision was made in lines of Langerhans and deepened with electrocautery. The Lewis's fascia i s divided. The crossing vein was cauterized. The fascia of the external oblique is anesthetized with local anesthetic before being incised in the directions of its fibers. The hernia was identified, dis sected from the cord. The cord was encircled with a Lokesh. After dissecting to the pubic tubercle a nd down to the internal ring, the hernia is reduced into the preperitoneal space and a Prolene mesh i s constructed to fit into the area of the defect. After insuring good apposition, it was secured in p lace using 0 Ethibond suture. The leaves of the mesh were reapproximated around the cord with enough space to allow movement, but not reherniation. The leaves were then tucked underneath the external ob lique fascia, which was then approximated over the mesh and cord. Lewis's fascia was reapproximated using 3-0 Vicryl and the skin was reapproximated in layers using 3-0 Vicryl and 4-0 Monocryl. Dermabo nd was applied. The patient was awakened, taken to recovery room. Needle, instrument, and sponge counts verified to b e correct x2. /[id number]/MODL
== END 2018-04-03 18:39 | disposition home or self-care (01) ==
LOC: FSGY 13:27
PROVIDERS: ATTEND Surgery
PROC: 0YU50JZ Supplement Right Inguinal Region with Synthetic Substitute, Open Approach (ICD-10-PCS; principal; 2018-04-03 16:00)
DX: K40.90 Unilateral inguinal hernia, without obstruction or gangrene, not specified as recurrent (principal); J44.9 Chronic obstructive pulmonary disease, unspecified; F17.200 Nicotine dependence, unspecified, uncomplicated; Z87.01 Personal history of pneumonia (recurrent)
CPT/HCPCS: C1781; J0690; J1100; J1885; J2250; J2704; J3010